=== PATIENT | female | born 1990 | race Caucasian/White ===

== ENCOUNTER 2018-10-18 06:20 | Outpatient (CLI) | payer BC ==
[~2018-10-18] VITALS: Ht 165.1 cm; Wt 102.1 kg
[~2018-10-18 06:20] MED LIST: ALLERGY INJECTION SC; ALLERGY INJECTIONS SQ
== END 2018-10-18 15:42 | disposition home or self-care (01) ==
LOC: PREOP 06:20
PROVIDERS: ATTEND Obstetrics & Gynecology
DX: Z01.818 Encounter for other preprocedural examination (principal)

== ENCOUNTER 2018-10-28 07:52 | Day surgery (SDC) | payer BC ==
[~2018-10-28] VITALS: Ht 165.1 cm; Wt 102.1 kg
[2018-10-28] VITALS (11 sets, daily range): BP systolic 113–141; BP diastolic 66–91
--- OUTSIDE RECORDS SUMMARY | 2018-10-28 07:56 | XMS REPORT | Continuity of Care Document ---
Author Organization Unknown Address Unknown Allergies There is no data. Medications There is no data. Problems There is no data. Procedures There is no data. Results There is no data. Encounters ACCT No. Visit Date/Time Discharge Status Pt. Type Provider Facility Loc./Unit Complaint [id number] 10/05/2018 10:03:23 10/05/2018 23:59:59 CLS Outpatient Malou Aquino [id number] 08/16/2018 10:04:03 08/16/2018 23:59:59 CLS Outpatient SONNY SWANSON [id number] 08/09/2018 14:57:48 08/09/2018 23:59:59 CLS Outpatient Malou Aquino [id number] 07/16/2018 10:51:15 07/16/2018 23:59:59 CLS Outpatient SONNY SWANSON [id number] 08/13/2017 15:04:14 08/13/2017 23:59:59 CLS Outpatient SONNY SWANSON [id number] 05/20/2017 08:25:07 05/20/2017 23:59:59 CLS Outpatient SONNY SWANSON [id number] 03/27/2017 12:09:05 03/27/2017 23:59:59 CLS Outpatient Aman Spring [id number] 01/20/2017 15:45:57 01/20/2017 23:59:59 CLS Outpatient Aman Spring [id number] 01/16/2017 15:05:24 01/16/2017 23:59:59 CLS Outpatient Aman Spring [id number] 01/08/2017 12:30:09 01/08/2017 23:59:59 CLS Outpatient Medina Martinez [id number] 12/19/2016 13:03:46 12/19/2016 23:59:59 CLS Outpatient Aman Spring [id number] 07/31/2016 11:18:13 07/31/2016 23:59:59 CLS Outpatient SONNY SWANSON [id number] 01/29/2016 11:01:25 01/29/2016 23:59:59 CLS Outpatient SONNY SWANSON [id number] 2016 10:03:54 2016 23:59:59 CLS Outpatient SONNY SWANSON [id number] 08/17/2015 13:01:03 08/17/2015 23:59:59 CLS Outpatient Malou Aquino [id number] 08/07/2015 16:20:51 08/07/2015 23:59:59 CLS Outpatient Sonny Woodall [id number] 04/11/2015 09:59:59 04/11/2015 23:59:59 CLS Outpatient SONNY SWANSON [id number] 02/13/2015 14:15:51 02/13/2015 23:59:59 CLS Outpatient SONNY SWANSON [id number] 01/15/2015 22:23:53 01/15/2015 23:59:59 CLS Outpatient SONNY SWANSON [id number] 01/15/2015 22:09:51 01/15/2015 23:59:59 CLS Outpatient SONNY SWANSON [id number] 09/01/2014 10:48:15 09/01/2014 23:59:59 CLS Outpatient SONNY SWANSON [id number] 04/06/2014 14:23:32 04/06/2014 23:59:59 CLS Outpatient SONNY SWANSON [id number] 03/16/2014 14:34:21 03/16/2014 23:59:59 CLS Outpatient SONNY SWANSON [id number] 01/24/2014 13:47:22 01/24/2014 23:59:59 CLS Outpatient Arnaud John [id number] 11/03/2013 15:33:16 11/03/2013 23:59:59 CLS Outpatient SONNY SWANSON Lisa [id number] 10/10/2013 15:16:18 10/10/2013 23:59:59 CLS Outpatient SONNY SWANSON [id number] 07/05/2013 16:54:07 07/05/2013 23:59:59 CLS Outpatient SONNY SWANSON Lisa [id number] 07/12/2017 10:06:05 ACT Unknown
[2018-10-28] MEDS ORDERED: LACTATED RINGERS 1,000 ML IV PRN (08:10)
[2018-10-28] MEDS ORDERED: ceFAZolin INJECTION 1,000 MG in WATER (STERILE) FOR INJECTION 10 ML IV ONE (08:15)
[2018-10-28] MEDS ORDERED: BUPIVACAINE 0.25% 30 ML (SENSORCAINE) VIAL ONE (08:28)
[2018-10-28] MEDS ORDERED: METHYLENE BLUE (Antidote only) 100 MG/10 ML VIAL IV ONE (08:29)
[2018-10-28 08:46] LABS: BASOPHILS # (AUTO) 0.1 10^3/uL (0.0-0.1); BASOPHILS % (AUTO) 1 % (0-10); EOSINOPHILS # (AUTO) 0.1 10^3/uL (0.0-0.3); EOSINOPHILS % (AUTO) 1 % (0-10); HEMATOCRIT 39 % (35-52); HEMOGLOBIN 12.7 G/DL (11.5-16.0); LYMPHOCYTES # (AUTO) 3.1 X 10^3 (1.0-4.0); LYMPHOCYTES % (AUTO) 32 % (12-44); MEAN CORPUSCULAR HEMOGLOBIN 24 PG (25-34); MEAN CORPUSCULAR HGB CONC 33 G/DL (32-36); MEAN CORPUSCULAR VOLUME 74 FL (80-99); MONOCYTES # (AUTO) 0.7 X 10^3 (0.0-1.0); MONOCYTES % (AUTO) 7 % (0-12); NEUTROPHILS # (AUTO) 5.6 X 10^3 (1.8-7.8); NEUTROPHILS % (AUTO) 59 % (42-75); PLATELET COUNT 345 10^3/uL (130-400); RED CELL DISTRIBUTION WIDTH 14.9 % (10.0-14.5); WHITE BLOOD COUNT 9.5 10^3/uL (4.3-11.0)
[2018-10-28] MEDS ORDERED: D5 LR IV SOLUTION 1,000 ML IV SCH (09:24)
--- NOTE | 2018-10-28 09:24 | Progress Note-Pre Operative ---
Pre-Operative Progress Note H&P Reviewed The H&P was reviewed, patient examined and no changes noted. Date Seen by Provider: October 28, 2018 Time Seen by Provider: 09:24 Date H&P Reviewed: October 28, 2018 Time H&P Reviewed: 09:24 Pre-Operative Diagnosis: AUB, Intrauterine filling defect on HSG WILLIE GALVEZ DO October 28, 2018 09:24
[2018-10-28] MEDS ORDERED: LIDOCAINE PF 2% 5 ML (XYLOCAINE) VIAL ONE (09:25)
[2018-10-28] MEDS ORDERED: ROCURONIUM 10 MG/ML 5 ML SYRINGE IV ONE (09:25)
[2018-10-28] MEDS ORDERED: proPOfol 200 MG/20 ML (DIPRIVAN) VIAL IV ONE (09:25)
[2018-10-28] MEDS ORDERED: SEVOFLURANE (ULTANE) 15 ML INHAL SOLN ONE ×2 (09:25→10:34)
[2018-10-28] MEDS ORDERED: MIDAZOLAM 2 MG/2 ML (VERSED) VIAL ONE (09:26)
[2018-10-28] MEDS ORDERED: fentaNYL INJECTION 100 MCG/2 ML AMP ONE (09:26)
--- NOTE | 2018-10-28 09:26 | Discharge Inst-Women's Service ---
Discharge Inst-Women's Serv Depart Medication/Instructions New, Converted or Re-Newed RX: RX on Chart Consults/Follow Up Additional Follow Up: Yes Orders/Referrals Dr. Mena in 10-14 days Activity Activity: Activity as Tolerated Driving Instructions: No Driving for 1 Week NO SMOKING: NO SMOKING Nothing Inside Vagina: No Douching, No Marley, No Tampons Diet Discharge Diet: No Restrictions Symptoms to Report to : Bleeding Excessive, Pain Increased, Fever Over 101 Degrees F, Vaginal Bleeding Increase, Questions/Concerns For Any Problems or Questions: Contact Your Physician Skin/Wound Care Infection Signs and Symptoms: Increased Redness, Foul Odor of Wound, Increased Drainage, Skin Itchy or Has a Rash, Increased Swelling, Temperature Above 101 F Operative Area Clean and Dry: Keep Incision Clean/Dry Stitches/Jazz/Dermabond: Dermabond, Care of Stitches Bathing Instructions: WILLIE James DO October 28, 2018 09:26
[2018-10-28] MEDS ORDERED: ACHD5005 PO (09:27)
[2018-10-28] MEDS ORDERED: IBUP-1773 PO (09:27)
[2018-10-28] MEDS ORDERED: ONDANSETRON 4 MG/2 ML (SDV) Z0FRAN ONE (09:29)
[2018-10-28] MEDS ORDERED: DEXAMETHASONE 10 MG/ML (DECADRON) 1 ML VIAL ONE (09:29)
[2018-10-28] MEDS ORDERED: ONDANSETRON 4 MG/2 ML (SDV) Z0FRAN IVP PRN ×2 (09:30→11:00)
[2018-10-28] MEDS ORDERED: HYDROcodone/APAP 5 MG/325 MG (LORTAB) TAB PO PRN (09:30)
[2018-10-28] MEDS ORDERED: KETOROLAC 30 MG/ML VIAL IVP ONE (09:30)
[2018-10-28] MEDS ORDERED: NEOSTIGMINE 1 MG/ML 5 ML SYRINGE ONE (10:32)
[2018-10-28] MEDS ORDERED: GLYCOPYRROLATE 0.2 MG/ML (ROBINUL) 2 ML VIAL ONE (10:32)
[2018-10-28] MEDS ORDERED: morphine INJ 10 MG/ML 1ML (SYR OR VIAL) IVP ONE (11:00)
[2018-10-28] MEDS ORDERED: MEPERIDINE (DEMEROL) INJ 50 MG/ML IVP ONE (11:00)
--- NOTE | 2018-10-28 16:31 | Anesthesia-General Post-Op ---
General Patient Condition Mental Status/LOC: Same as Preop Cardiovascular: Satisfactory Nausea/Vomiting: Absent Respiratory: Satisfactory Pain: Controlled Complications: Absent Post Op Complications Complications None Follow Up Care/Instructions Patient Instructions None needed. Anesthesia/Patient Condition Patient Condition Patient was seen this morning after the surgery and she was doing well, no complaints, stable vital signs, no apparent adverse anesthesia problems. ABI REDDY DO October 28, 2018 16:31
--- NOTE | 2018-10-28 21:30 | OPERATIVE REPORT ---
DATE OF SERVICE: 10/28/2018 PREOPERATIVE DIAGNOSES: 1. A 28-year-old female with abnormal uterine bleeding. 2. Mass filling defect on hystersalpingogram in the lower uterine segment. POSTOPERATIVE DIAGNOSES: 1. A 28-year-old female with abnormal uterine bleeding. 2. Mass filling defect on hystersalpingogram in the lower uterine segment. PROCEDURE: 1. D and C with hysteroscopic resection of endometrial polyps. 2. Laparoscopic chromotubation. SURGEON: Willie Galvez DO ANESTHESIA: General endotracheal. ESTIMATED BLOOD LOSS: Minimal. URINE OUTPUT: 50 mL, clear at the end of the procedure. FLUIDS: 400 mL of lactate Ringer solution. FINDINGS: Multiple endometrial polyps that are bulky in appearance and the endometrium. Grossly normal appearing cavity otherwise grossly normal appearing external female genitalia including the cervix and vaginal mucosa. Grossly normal appearing uterus, bilateral fallopian tubes and ovaries with bilateral tubal patency demonstrated by chromotubation with methylene blue dye. SPECIMENS SENT: Endometrial polyp resection. INDICATIONS FOR PROCEDURE: This patient is a 28-year-old female who has struggled with an irregular periods for quite some time. She underwent a hystersalpingogram in a different facility, which revealed a mass filling defect in the lower uterine segment. Ultrasound that showed endometrial thickening in the past. The patient had underlying concerns of an intrauterine mass. We discussed to proceed with hysteroscopic evaluation of the endometrium and possible removal of any encountered neoplasm. Risks of the procedure were discussed with the patient in detail. We also discussed at the same time performing laparoscopy to ensure no peritoneal pathology or abnormalities that could interfere long-term with fertility. We discussed diagnostic laparoscopy with chromotubation. All the risks and alternatives of this procedure were discussed with the patient in detail. After all of her questions were answered, consent was obtained in the preoperative area and the patient was taken to the operating room. OPERATIVE REPORT IN DETAIL: Once in the operating room, general anesthesia was found to be adequate, placed in dorsal lithotomy position, prepped and draped in normal sterile fashion. The procedure was started by placing a Maxwell catheter using sterile technique. After a timeout was performed a weighted speculum was inserted in the patient's vagina. A right angle retractor was used to visualize the cervix, which was grasped at 12 o'clock position using a long Allis clamp. A paracervical block was then performed at 3 and 9 o'clock positions on the cervix using 0.25% Marcaine. Care was taken to aspirate before injecting, 5 mL were injected to each side at 3 and 9. I then proceeded with sounding the uterine cavity and depth was found to be 8 cm. I then gently dilated the cervix using Hegar dilators to allow placement of the hysteroscope using the StageBloc fluid management system and normal saline as my visual medium. I advanced the hysteroscope into the endometrial cavity that demonstrates multiple endometrial polyps, which were captured, and video and imaging by the hysteroscope. I then used the resectoscope tool down the hysteroscope to resect all of these endometrial polyps while keeping the endometrial lining normal and not damaging the endometrium. Once this was done, I took another documented image of the endometrium, which is cleared at that point and removed the hysteroscope. I then removed all the other instruments from the patient's vagina after placing a Kronner uterine manipulator into the endometrial cavity, I performed a change of gloves. I took my attention to the abdomen where infraumbilically I infiltrated this area using 0.25% Marcaine and made a 5 mm incision with a knife and introduced a Veress needle through the incision until intraperitoneal placement was confirmed using a saline drop test. An opening pressure of 2 mmHg was noted. I proceeded to maximum pressure of 15 mmHg, at which point I removed the Veress needle and introduced a 5 mm blunt trocar. Once this was in place I am able to confirm intraperitoneal placement using the laparoscope. A brief scan of the upper and lower abdominal anatomy demonstrates a grossly normal anatomy as well as no damage upon entry. I then had the patient placed in steep Trendelenburg and I am able to visualize all my findings as described above. I press methylene dye blue 60 mL down the Kronner uterine manipulator, which spills with bilateral tubal patency from the distal tubal ampulla. This is documented as well with imaging after which I copiously irrigated the pelvis using normal saline. I do this blindly, but reevaluation after doing so reveals an irrigation of all of the methylene blue dye as well as no damage upon irrigation. I then used the trocar site to release insufflation and introduced 10 mL of 0.25% Marcaine for postoperative pain management. I removed the trocar site at that point as well. I then closed the trocar site using Dermabond and Band-Aid was placed over this. A Kronner uterine manipulator was removed. Maxwell catheter was removed. The patient tolerated the procedure well and sent to the recovery area in stable condition. Lap and sponge count was correct at the end of procedure, instrument counts correct as well. Job ID: [id number] DocumentID: [id number] Dictated Date: 10/28/2018 17:08:35 Gyroscope Repairer Date: 10/28/2018 21:30:21 Dictated By: WILLIE GALVEZ DO
== END 2018-10-28 13:15 | disposition home or self-care (01) ==
LOC: SDC 07:52
PROVIDERS: ATTEND Obstetrics & Gynecology
DX: N93.9 Abnormal uterine and vaginal bleeding, unspecified (principal); N84.0 Polyp of corpus uteri; R10.2 Pelvic and perineal pain; E66.9 Obesity, unspecified; Z68.37 Body mass index [BMI] 37.0-37.9, adult
CPT/HCPCS: 36415; 84703; 85025; 86850; 86900; 86901; 87081; 94664